=== PATIENT | female | born 1945 | race Caucasian/White ===

== ENCOUNTER → 2017-03-28 | Outpatient (CLI) | payer OTHER ==
[2017-03-28 13:32] LABS: BASO % 0.3 %; BASO ABS # 0.03 K/uL (0-0.2); COMPLETE YES; EOS % 0.1 %; HEMATOCRIT 36.7 % (37-47); IG% 0.2 %; LYMPH ABS # 0.53 K/uL (1.2-3.4); MEAN CELL VOLUME 98.4 fL (80-100); MEAN CORPUSCULAR HEMOGLOBIN 31.9 pg (25-34); MEAN CORPUSCULAR HGB CONC 32.4 g/dl (32-36); MEAN PLATELET VOLUME 11.5 fL (7.4-10.4); MONO % 17.6 %; NEUT % 76.8 %; PLATELET COUNT 185 K/uL (130-400); RED BLOOD COUNT 3.73 M/uL (4.2-5.4); WHITE BLOOD COUNT 10.65 K/uL (4.8-10.8)
[2017-03-28 14:07] LABS: ALT/SGPT 17 U/L (12-78); AST/SGOT 19 U/L (15-37); BLOOD UREA NITROGEN 17 mg/dl (7-18); BUN/CREATININE RATIO 32.3 (10-20); CALCIUM 9.3 mg/dl (8.5-10.1); CARBON DIOXIDE 32 mmol/L (21-32); CHLORIDE 101 mmol/L (98-107); CHOLESTEROL 206 mg/dl (0-200); CREATININE 0.52 mg/dl (0.60-1.20); GLUCOSE 104 mg/dl (70-99); SODIUM 139 mmol/L (136-145); TRIGLYCERIDES 66 mg/dl (0-150); VERY LOW DENSITY LIPOPROT CALC 13 mg/dl
[2017-03-28 14:09] LABS: ALB/GLOB RATIO 1.3 (0.9-2); ALKALINE PHOSPHATASE 48 U/L (45-117); CHOLESTEROL/HDL RATIO 2.7; HDL CHOLESTEROL 75 mg/dl; LDL CHOLESTEROL CALCULATED 118 mg/dl
== END | disposition home or self-care (01) ==
LOC: C.LABSPEC 12:58
PROVIDERS: ATTEND Family Medicine
DX: E78.2 Mixed hyperlipidemia (principal); Z00.00 Encounter for general adult medical examination without abnormal findings; M81.0 Age-related osteoporosis without current pathological fracture